=== PATIENT | female | born 1970 | race African-American/Black ===

== ENCOUNTER 2019-03-22 08:33 | Day surgery (SDC) | payer OTHER ==
[2019-03-15 11:30] VITALS: BMI 26.4
--- NOTE | 2019-03-22 08:02 | HP ---
[facility] - Chief Complaint Chief Complaint: left knee pain - Past Medical History Allergies/Adverse Reactions: Allergies Allergy/AdvReac Type Severity Reaction Status Date / Time No Known Allergies Allergy Verified 03/15/19 11:21 ...LMP: 03/07/19 - Current Medications Current Medications: Home Medications Medication Instructions Recorded Norethindrone-E.estradiol-Iron 1 each PO DAILY 03/15/19 [Loestrin Fe 1-20 Tablet] Satellite Physical Exam - Physical Examination General Appearance: Well Nourished, Well Developed, Alert & Oriented x3 ENT: Clear Lung: Normal air movement Heart: Regular rate & rhythm Extremities: Other (left knee- + swelling, + ttp, decr rom, + mcmurrays, nvi MRI + mt) Neurological: Intact, Alert, Oriented Satellite Impression/Plan - Impression/Plan Impression: left knee internal derangement Operative Procedure: left knee arthroscopy Date to be Performed: 03/22/19
[2019-03-22] MEDS ORDERED: MIDAZOLAM HCL 2 MG/2 ML SINGLE DOSE VIAL ONE (10:57)
[2019-03-22] MEDS ORDERED: LIDOCAINE 1%/EPI 1:100000 (20 ML MULTI DOSE VIAL) ONE (11:12)
[2019-03-22] MEDS ORDERED: BUPIVACAINE HCL/PF 0.5% (5MG/ML) 10 ML VIAL ONE (11:12)
[2019-03-22] MEDS ORDERED: ONDANSETRON 4 MG/2 ML VIAL IVPUSH PRN (12:58)
[2019-03-22] MEDS ORDERED: oxyCODONE HCL 5 MG TABLET PO PRN ×2 (12:58)
[2019-03-22] MEDS ORDERED: LACTATED RINGERS SOLUTION 1,000 ML IV SCH (13:00)
[2019-03-22] MEDS ORDERED: ONDANSETRON 4 MG/2 ML VIAL IVPUSH ONE (14:15)
--- NOTE | 2019-03-22 14:51 | OP ---
Operative Note - Note: Operative Date: 03/22/19 (ny) Pre-Operative Diagnosis: left knee internal derangement Operation: left knee arthroscopy with PLM Post-Operative Diagnosis: Same as Pre-op Surgeon: Abel Winston Anesthesia: General, Local Specimens Removed: shavings Estimated Blood Loss (mls): 5 Operative Report Dictated: Yes
[2019-03-22 15:19] VITALS: PULSE 72
[2019-03-22 15:52] VITALS: BP 132/70; TEMP 98
--- NOTE | 2019-03-22 17:00 | OP ---
DATE OF OPERATION: 03/22/2019 PREOPERATIVE DIAGNOSIS: Internal derangement, left knee. POSTOPERATIVE DIAGNOSIS: Internal derangement, left knee. PROCEDURE: Arthroscopy, left knee; partial lateral meniscectomy. SURGICAL ATTENDING: Abel Winston MD ANESTHESIA: General with LMA. CLOSURE: 4-0 nylon COMPLICATIONS: None. CONDITION: Recovery in stable condition. DESCRIPTION OF OPERATIVE PROCEDURE: Patient was taken to the operating room on March 22, 2019. General anesthesia with LMA was administered by the anesthesiologist. The left lower extremity was prepped and draped in the usual sterile fashion. Medial and lateral infrapatellar portal sites were infiltrated with 1% Xylocaine with epinephrine. Lateral infrapatellar portal was made with a 15 blade followed by a blunt trocar. The scope was placed up into the suprapatellar pouch through this portal. The knee was inflated then with a cocktail of 10 mL of 1% Xylocaine, 10 mL of 0.5% Marcaine, and 20 mL of arthroscopic saline. The inferomedial portal was then made with a 15 blade followed by a blunt trocar. The pouch was visualized to be clean. The medial and lateral gutters were visualized to be clean. The undersurface of the patella and trochlea were visualized to be intact with valgus stress on the knee. The medial compartment was entered. The medial meniscus visualized and probed and found to be intact. The medial femoral condyle had some changes, grade 2 in nature, but no full-thickness cartilage loss. The same was true with the tibial plateau. There was a large medial osteophyte that was also excised. At 90 degrees, the ACL was visualized and probed, found to be intact in the figure-4 position. The lateral compartment was entered. The lateral meniscus had a flap tear in the mid portion which was debrided back to smooth and stable meniscal tissue using a meniscal biter and arthroscopic shaver. The lateral femoral condyle also had some areas of grade 2-3 changes and the intraarticular cartilage was debrided with a sharp shaver. Left lateral tibial plateau was found to be intact. The knee was irrigated with copious amounts of irrigation. The portals were closed with 4-0 nylon. Prior to closure, 20 mL of 0.5% Marcaine was infused into the knee through the scope trocar for postoperative analgesia. A sterile pressure dressing was applied. The patient was awakened from anesthesia and transferred to Recovery in stable condition. No complication. Estimated blood loss negligible. Dante [id number]
== END 2019-03-22 15:51 | disposition home or self-care (01) ==
LOC: FASU 08:33
PROVIDERS: ATTEND Orthopaedic Surgery
PROC: 0SBD4ZZ Excision of Left Knee Joint, Percutaneous Endoscopic Approach (ICD-10-PCS; principal; 2019-03-22 12:26)
DX: M23.301 Other meniscus derangements, unspecified lateral meniscus, left knee (principal)
CPT/HCPCS: 94760